=== PATIENT | male | born 1990 | race American Indian/Alaskan Native ===

== ENCOUNTER 2016-11-25 13:16 | Emergency (ER) | payer OTHER ==
[2016-11-25] MEDS ORDERED: TYLENOL PO ONE (13:44)
[2016-11-25 19:20] LABS: Basophils % (Auto) 0.4 % (0.0-1.8); Hemoglobin 14.2 gm/dl (11.8-15.2); Mean Corpuscular HGB Conc 33 % (32-34); Mean Corpuscular Hemoglobin 29 pg (28-32); Mean Corpuscular Volume 90 fl (84-94); Platelet Count 145 K/mm3 (140-440); Red Blood Count 4.81 M/mm3 (3.65-5.03); Red Cell Distribution Width 13.1 % (13.2-15.2); White Blood Count 14.8 K/mm3 (4.5-11.0)
[2016-11-25 19:34] LABS: Anion Gap 26 mmol/L; BUN/Creatinine Ratio 8.75; Blood Urea Nitrogen 7 mg/dL (9-20); Calcium 9.2 mg/dL (8.4-10.2); Carbon Dioxide 24 mmol/L (22-30); Chloride 97.8 mmol/L (98-107); Creatine Kinase 103 units/L (55-170); Creatine Kinase MB < 1.0 ng/mL (0.0-4.0); Glucose 107 mg/dL (75-100); Potassium 4.1 mmol/L (3.6-5.0); Sodium 144 mmol/L (137-145)
--- NOTE | 2016-11-25 19:38 | XRay Report ---
FINAL REPORT EXAM: XR CHEST ROUTINE 2V HISTORY: Chest Pain TECHNIQUE: Frontal view of the chest. PRIORS: None. FINDINGS: The cardiomediastinal silhouette appears normal. The lungs are clear. The bones and soft tissues are unremarkable. IMPRESSION: No evidence of acute cardiopulmonary disease
[2016-11-25] MEDS ORDERED: NORCO 5/325 PO ONE (20:33)
--- NOTE | 2016-11-25 20:45 | Emergency Department Report ---
HPI - HPI HPI: 26-year-old male presents today with sore throat and painful swallowing 2 days. Patient also complaining of chest pain, minimal shortness of breath, nausea and fever patient states that he had one episode of vomiting 2 days ago. Tmax = 102.8. Denies sick contacts. He tried Aleve and ibuprofen without relief. Denies runny nose, cough, abdominal pain, bodyaches. <MEHREEN CALIX - Last Filed: 11/26/16 00:01> <AZALEA BOOKER - Last Filed: 11/26/16 06:28> - General Chief Complaint: Sore Throat Time Seen by Provider: 11/25/16 16:58 ED Past Medical Hx - Past Medical History Previous Medical History?: No - Surgical History Additional Surgical History: HERNIA REPAIR - Social History Smoking Status: Never Smoker Substance Use Type: Alcohol <MEHREEN CALIX - Last Filed: 11/26/16 00:01> <AZALEA BOOKER - Last Filed: 11/26/16 06:28> - Medications Home Medications: Home Medications Medication Instructions Recorded Confirmed Last Taken Type Ibuprofen [Motrin] 600 mg PO Q8H PRN #15 tablet 11/26/16 Unknown Rx ED Review of Systems ROS: Stated complaint: RAY/CHEST TIGHT/CANT SWALLOW NECK SWOLLEN Other details as noted in HPI Constitutional: fever. denies: chills, malaise Eyes: denies: eye pain ENT: throat pain. denies: ear pain, congestion Respiratory: shortness of breath. denies: cough, wheezing Cardiovascular: chest pain. denies: palpitations Endocrine: no symptoms reported Gastrointestinal: nausea, vomiting. denies: abdominal pain Neurological: denies: headache, weakness <MEHREEN CALIX - Last Filed: 11/26/16 00:01> ROS: Stated complaint: RAY/CHEST TIGHT/CANT SWALLOW NECK SWOLLEN Other details as noted in HPI <AZALEA BOOKER - Last Filed: 11/26/16 06:28> Physical Exam - Physical Exam Vital Signs: Vital Signs 11/25/16 11/25/16 11/25/16 13:35 13:46 20:27 Temperature 102.8 F H Pulse Rate 127 H 130 H Respiratory 18 20 16 Rate Blood Pressure 124/72 Blood Pressure 138/90 [Left] O2 Sat by Pulse 99 95 Oximetry 11/25/16 20:36 Temperature 98.6 F Pulse Rate Respiratory Rate Blood Pressure Blood Pressure [Left] O2 Sat by Pulse Oximetry Physical Exam: GENERAL: The patient is well-developed and well-nourished. Patient is in NAD. HEAD: Normocephalic. Atraumatic. EYES: PERRL. EARS: External auditory canals and tympanic membranes clear; hearing grossly intact. NOSE: Normal nasal mucosa with no nasal discharge. THROAT: Positive for erythema, tonsillomegaly with tonsillar exudates. NECK: Positive anterior cervical lymphadenopathy. CHEST/LUNGS: Clear to auscultation throughout. HEART/CARDIOVASCULAR: Regular rate and rhythm. ABDOMEN: Abdomen is soft, nontender. No guarding or rebound tenderness. EXTREMITIES: Peripheral pulses intact. Capillary refill less than 2 seconds. NEURO: Alert and oriented x 3. Normal gait. <MEHREEN CALIX - Last Filed: 11/26/16 00:01> - Physical Exam Vital Signs: Vital Signs 11/25/16 11/25/16 11/25/16 13:35 13:46 20:27 Temperature 102.8 F H Pulse Rate 127 H 130 H Respiratory 18 20 16 Rate Blood Pressure 124/72 Blood Pressure 138/90 [Left] O2 Sat by Pulse 99 95 Oximetry 11/25/16 11/25/16 11/26/16 20:36 22:27 02:15 Temperature 98.6 F Pulse Rate 124 H 124 H Respiratory 16 16 Rate Blood Pressure Blood Pressure 129/74 124/76 [Left] O2 Sat by Pulse 95 100 Oximetry 11/26/16 02:20 Temperature 102.4 F H Pulse Rate Respiratory Rate Blood Pressure Blood Pressure [Left] O2 Sat by Pulse Oximetry <AZALEA BOOKER - Last Filed: 11/26/16 06:28> ED Course Vital Signs 11/25/16 11/25/16 11/25/16 13:35 13:46 20:27 Temperature 102.8 F H Pulse Rate 127 H 130 H Respiratory 18 20 16 Rate Blood Pressure 124/72 Blood Pressure 138/90 [Left] O2 Sat by Pulse 99 95 Oximetry 11/25/16 20:36 Temperature 98.6 F Pulse Rate Respiratory Rate Blood Pressure Blood Pressure [Left] O2 Sat by Pulse Oximetry <MEHREEN CALIX - Last Filed: 11/26/16 00:01> Vital Signs 11/25/16 11/25/16 11/25/16 13:35 13:46 20:27 Temperature 102.8 F H Pulse Rate 127 H 130 H Respiratory 18 20 16 Rate Blood Pressure 124/72 Blood Pressure 138/90 [Left] O2 Sat by Pulse 99 95 Oximetry 11/25/16 11/25/16 11/26/16 20:36 22:27 02:15 Temperature 98.6 F Pulse Rate 124 H 124 H Respiratory 16 16 Rate Blood Pressure Blood Pressure 129/74 124/76 [Left] O2 Sat by Pulse 95 100 Oximetry 11/26/16 02:20 Temperature 102.4 F H Pulse Rate Respiratory Rate Blood Pressure Blood Pressure [Left] O2 Sat by Pulse Oximetry Vital Signs 11/25/16 11/25/16 11/25/16 13:35 13:46 20:27 Temperature 102.8 F H Pulse Rate 127 H 130 H Respiratory 18 20 16 Rate Blood Pressure 124/72 Blood Pressure 138/90 [Left] O2 Sat by Pulse 99 95 Oximetry 11/25/16 11/25/16 11/26/16 20:36 22:27 02:15 Temperature 98.6 F Pulse Rate 124 H 124 H Respiratory 16 16 Rate Blood Pressure Blood Pressure 129/74 124/76 [Left] O2 Sat by Pulse 95 100 Oximetry 11/26/16 11/26/16 02:20 04:14 Temperature 102.4 F H 99.4 F Pulse Rate 100 H Respiratory 20 Rate Blood Pressure Blood Pressure 128/80 [Left] O2 Sat by Pulse 99 Oximetry - Reevaluation(s) Reevaluation #1: 11/26/16 02:28 Patient remains tacchycardic and febrile despite 2litre of IVF and 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 He was given an Additional 800 mg of motrin Reevaluation #2: 11/26/16 04:20 Patient's temperature is below 100. He was seen by Dr. Ugarte and patient can be discharged home. <AZALEA BOOKER - Last Filed: 11/26/16 06:28> ED Medical Decision Making - Lab Data Result diagrams: 11/25/16 18:17 11/25/16 18:17 Vital Signs 11/25/16 11/25/16 11/25/16 13:35 13:46 20:27 Temperature 102.8 F H Pulse Rate 127 H 130 H Respiratory 18 20 16 Rate Blood Pressure 124/72 Blood Pressure 138/90 [Left] O2 Sat by Pulse 99 95 Oximetry 11/25/16 11/25/16 20:36 22:27 Temperature 98.6 F Pulse Rate 124 H Respiratory 16 Rate Blood Pressure Blood Pressure 129/74 [Left] O2 Sat by Pulse 95 Oximetry Lab Results 11/25/16 11/25/16 Range/Units 18:17 18:17 WBC 14.8 H (4.5-11.0) K/mm3 RBC 4.81 (3.65-5.03) M/mm3 Hgb 14.2 (11.8-15.2) gm/dl Hct 43.0 (35.5-45.6) % MCV 90 (84-94) fl MCH 29 (28-32) pg MCHC 33 (32-34) % RDW 13.1 L (13.2-15.2) % Plt Count 145 (140-440) K/mm3 Lymph % (Auto) 15.0 (13.4-35.0) % Glades % (Auto) 12.4 H (0.0-7.3) % Eos % (Auto) 0.0 (0.0-4.3) % Baso % (Auto) 0.4 (0.0-1.8) % Lymph # 2.2 (1.2-5.4) K/mm3 Glades # 1.8 H (0.0-0.8) K/mm3 Eos # 0.0 (0.0-0.4) K/mm3 Baso # 0.1 (0.0-0.1) K/mm3 Seg Neutrophils % 72.2 H (40.0-70.0) % Seg Neutrophils # 10.7 H (1.8-7.7) K/mm3 Potassium 4.1 (3.6-5.0) mmol/L Chloride 97.8 L (98-107) mmol/L Carbon Dioxide 24 (22-30) mmol/L Anion Gap 26 mmol/L BUN 7 L (9-20) mg/dL Creatinine 0.8 (0.8-1.5) mg/dL Estimated GFR > 60 ml/min BUN/Creatinine Ratio 8.75 % Glucose 107 H (75-100) mg/dL Calcium 9.2 (8.4-10.2) mg/dL Total Creatine Kinase 103 (55-170) units/L CK-MB (CK-2) < 1.0 (0.0-4.0) ng/mL Troponin T < 0.010 (0.00-0.029) ng/mL - Radiology Data Radiology results: report reviewed Chest x-ray: The cardiomediastinal silhouette appears normal. The lungs are clear. The bones and soft tissues are unremarkable. - Medical Decision Making 26-year-old male presents today with sore throat and painful swallowing 2 days. Also complaining of chest pain and minimal shortness of breath. His rapid flu test and rapid strep test is negative. On physical exam patient is positive for tonsillomegaly with tonsillar exudates. His WBC count is 14.8. Due to his elevated heart rate patient has been given IV fluids and strep throat cocktail (Bicillin, Viscous Lidocaine and Decadron). Discussed patient with Dr. Rosario, who would like the patient to be monitored. The patient is okay to be discharged home in his heart rate is below 100, otherwise patient needs to be admitted. Discussed patient with [facility] Azalea Booker. <MEHREEN CALIX - Last Filed: 11/26/16 00:01> - Lab Data Result diagrams: 11/25/16 18:17 11/25/16 18:17 - Medical Decision Making Upon reevaluation patient with tachycardia area and fever. He received an additional 1 L of IV fluid in emergency room with no change in heart rate. 0400: Patient heart rate is 100 and his temperature is 99.4. She will be discharged home. He was given prescription for Motrin. <AZLAEA BOOKER - Last Filed: 11/26/16 06:28> Critical care attestation.: If time is entered above; I have spent that time in minutes in the direct care of this critically ill patient, excluding procedure time. <MEHREEN CALIX - Last Filed: 11/26/16 00:01> Critical care attestation.: If time is entered above; I have spent that time in minutes in the direct care of this critically ill patient, excluding procedure time. <AZALEA BOOKER - Last Filed: 11/26/16 06:28> ED Disposition <MEHREEN CALIX - Last Filed: 11/26/16 00:01> Is pt being admited?: No Does the pt Need Aspirin: No <JHONYAZALEA SCHULER Kimber - Last Filed: 11/26/16 06:28> Clinical Impression: Fever in adult, Atypical chest pain, Exudative pharyngitis, Enlarged tonsils Leukocytosis, unspecified Qualifiers: Leukocytosis type: unspecified Qualified Code(s): D72.829 - Elevated white blood cell count, unspecified Disposition: DISCHARGED TO HOME OR SELFCARE Condition: Stable Instructions: Chest Pain (ED), Strep Throat (ED), Leukocytosis (ED), Fever in Adults (ED) Additional Instructions: Please rotate Tylenol and Motrin [id number] every 4-6 hours for the next 24 hours to keep fever down. Is drink at least 8 ounces of water every day. You received Bicillin injection to treat strep throat in emergency room. This one-time dose medication to treat strep throat. F/U primary care physician in 3 days Prescriptions: Ibuprofen [Motrin] 600 mg PO Q8H PRN #15 tablet PRN Reason: Pain Referrals: [facility] [Outside] - 11/29/16 Forms: Accompanied Note, Work/School Release Form(ED)
[2016-11-25] MEDS ORDERED: NACL 0.9% 1000 ML 1,000 ML IV ONE (23:23)
[2016-11-25] MEDS ORDERED: DECADRON PO ONE (23:24)
[2016-11-25] MEDS ORDERED: BICILLIN L-A IM ONE (23:24)
[2016-11-25] MEDS ORDERED: LIDOCAINE VISCOUS 2% MM NR (23:30)
[2016-11-26] MEDS ORDERED: NACL 0.9% 1000 ML 1,000 ML IV ONE (01:08)
[2016-11-26] MEDS ORDERED: MOTRIN ONE (02:22)
[2016-11-26] MEDS ORDERED: MOTRIN PO ONE (02:23)
[2016-11-26 04:15] VITALS: BP 128/80
[2016-11-26 04:38] LABS: Bilirubin,Urine NEG (Negative); Blood,Urine NEG (Negative); Ketones,Urine NEG (Negative); Leukocyte Esterase,Urine TR (Negative); Nitrite,Urine NEG (Negative); Protein,Urine <15 mg/dL mg/dL (Negative); Urobilinogen,Urine < 2.0 mg/dL (<2.0)
== END 2016-11-26 04:33 | disposition home or self-care (01) ==
LOC: ED 13:16
DX: J02.9 Acute pharyngitis, unspecified (principal); R07.89 Other chest pain; R50.9 Fever, unspecified; J35.1 Hypertrophy of tonsils; D72.829 Elevated white blood cell count, unspecified
CPT/HCPCS: 36415; 71020; 80048; 81001; 82140; 82550; 82553; 84484; 85025; 87040; 87086; 87116; 87400; 87430; 93005; 93010; 96360; 96361; 96372; 99284; J0561; J7030; J8540

== ENCOUNTER 2017-03-16 21:15 | Emergency (ER) | payer SELFPAY ==
[2017-03-16 21:48] VITALS: BP 121/77
== END 2017-03-16 23:20 | disposition left against medical advice (07) ==
LOC: ED 21:15
DX: S01.81XA Laceration without foreign body of other part of head, initial encounter (principal); Z53.21 Procedure and treatment not carried out due to patient leaving prior to being seen by health care provider; W45.8XXA Other foreign body or object entering through skin, initial encounter; Y93.89 Activity, other specified; Y99.8 Other external cause status; Y92.89 Other specified places as the place of occurrence of the external cause